=== PATIENT | male | born 1985 | race Caucasian/White ===

== ENCOUNTER → 2017-08-09 | Outpatient (CLI) | payer OTHER ==
--- NOTE | ~2017-08-09 | EKG ---
[address] [address] ELECTROCARDIOGRAM REPORT Name: TIMO ROACH [facility] [id number] Admission: 08/09/17 Attend Phys: Eleanor Coulter MD, Discharge: Date of : 83 Report #: [id number] THIS REPORT FOR: //name// [facility] Test Date: 2017-08-09 Test Time: 09:28:41 Pat Name: TIMO ROACH Department: Room: Gender: M [employer]: : 1985 Requested By: Eleanor Coulter Order Number: [id number] MD: Nav Lockwood Measurements Intervals [place] Rate: 70 P: 28 AR: 148 QRS: 32 QRSD: 99 T: 39 QT: 397 QTc: 429 Interpretive Statements Sinus rhythm Normal No previous ECG available for comparison Electronically Signed On 08-10-2017 7:33:43 FLAGSETTER by Nav Lockwood [email or web address] <ELECTRONICALLY SIGNED> By: Nav Lockwood MD, [facility] 08/10/17 0733 0928 0928 Nav Lockwood MD, FAC /EPI
== END ==
LOC: RAD 08:55
DX: Z01.818 Encounter for other preprocedural examination (principal); E66.01 Morbid (severe) obesity due to excess calories; Z68.36 Body mass index [BMI] 36.0-36.9, adult

== ENCOUNTER 2017-08-18 05:24 | Day surgery (SDC) | payer OTHER ==
[2017-08-18] VITALS (9 sets, daily range): BP systolic 120–160; BP diastolic 73–101
[~2017-08-18] VITALS: Ht 188 cm; Wt 131.5 kg
--- NOTE | ~2017-08-18 | S ---
[facility] [place] [address] SURGICAL PATH RPT PROCEDURE Name: DERREK ROACH Room #: DEP [facility] M.R.#: [id number] Admission: 08/18/17 Date of : 83 Discharge: 08/19/17 Report #: [id number] Path Case #: [id number] PATHOLOGY REPORT COLLECTION DATE: 08/18/2017 RECEIVED DATE: 08/22/2017 SUBMITTING PHYS: Dr. Eleanor Coulter OTHER PHYS: Dr. Lamont Saucedo SPECIMEN(S) RECEIVED: A.Lateral stomach * * * * * * * * * * * * FINAL DIAGNOSIS: "Lateral stomach", partial gastrectomy: - Gastric mucosa, submucosa, and muscular wall with mild mucosal reactive changes and mild chronic inflammation. (CLW:pit; 08/23/2017) PATHOLOGIST: Chrissie Crawford M.D. REPORT ELECTRONICALLY SIGNED BY: Chrissie Crawford M.D. DATE/TIME: 08/23/2017 13:12 * * * * * * * * * * * * GROSS PATHOLOGY: The specimen is received in formalin, labeled "Derrek Roach lateral stomach". Received is a partial gastrectomy specimen with a stapled margin of resection measuring 20.2 x 6.5 cm in greatest dimensions. The serosal surface is walker-quinteros, smooth, and shiny. Opening the specimen reveals a pink-quinteros with closer displaying is normal architectural folds. No polyps or mass lesions identified. The specimen is submitted representatively in cassettes A1-A3. (SDY; 08/22/2017) CLINICAL HISTORY: Morbid obesity INITIAL CPT CODE(S): A; 06883 Professional services performed by [facility] at [facility] [address], [place] [address] Technical services performed by [facility] at [address] [place] [address]. [facility] [address] [place] [address] SURGICAL PATH RPT PROCEDURE Name: DERREK ROACH Room #: DEP [facility] Jenny#: [id number] Admission: 08/18/17 Date of : 83 Discharge: 08/19/17 Report #: [id number] Path Case #: [id number] [facility] [address] [address] PHONE: [phone] DIRECTOR: Oleg Hannah M.D. * * * END OF REPORT * * *
--- NOTE | ~2017-08-18 | O ---
[facility] [place] [address] OPERATIVE REPORT Name: TIMO ROACH Room #: 406-P REG [facility] M.R.#: [id number] Admission: 08/18/17 Attend Phys: Eleanor Coulter MD, Discharge: Date of : 83 Report #: [id number] THIS REPORT FOR: //name// CC: Lamont Coulter DATE OF SERVICE: 08/18/2017 PREOPERATIVE DIAGNOSES: 1. Obstructive sleep apnea. 2. Morbid obesity with a BMI of 37.3. POSTOPERATIVE DIAGNOSES: 1. Obstructive sleep apnea. 2. Morbid obesity with a BMI of 37.3. PROCEDURES PERFORMED: 1. Laparoscopic sleeve gastrectomy. 2. Thorough esophagogastroduodenoscopy (EGD). SURGEON: Eleanor Coulter MD POLE SANDER OPERATOR: Jackson Woodruff MD SECOND HOTEL ATTENDANT: ANNE Rooney ANESTHESIA: General endotracheal anesthesia. ESTIMATED BLOOD LOSS: Minimal (less than 5 mL). COMPLICATIONS: None appreciated. SPECIMENS: Gastric sleeve resection specimen to pathology. INDICATIONS: The patient is a 31-year-old male with a longstanding history of obesity as well as medical comorbid condition in the form of obstructive sleep apnea. The patient has a long history of obesity and has tried numerous weight loss attempts, all to no avail. The patient has been cleared by his primary care provider as well as by Psychology and Nutrition who have all indicated it is medically necessary for long-term weight loss as well as assistance with resolution of his comorbid conditions. As such, indication was for the above-mentioned procedures today. DESCRIPTION OF PROCEDURE: After explaining the risks, benefits and alternatives of the procedure with the patient in detail in the preoperative holding area and obtaining written consent, the patient was brought to the operating room and [address] [place] [address] OPERATIVE REPORT Name: TIMO ROACH Room #: 406-P REG [facility] M.R.#: [id number] Admission: 08/18/17 Attend Phys: Eleanor Coulter MD, Discharge: Date of : 83 Report #: [id number] placed supine on the operating room table. After conducting a thorough timeout procedure, verifying correct patient and procedure, the patient was given general endotracheal anesthesia. Once adequate anesthesia was obtained, his SCDs were hooked up in pneumatic compression device and he was given a preoperative dose of antibiotics in line with the SCIP protocol. It should be noted he was given a dose of Lovenox in the preoperative holding area 1 hour prior to the operating room as well to prevent venous thromboembolism. The patient was now positioned in the low lithotomy position with his legs in the Yellofin stirrups and his abdomen was prepped and draped in standard surgical sterile fashion. I began the procedure by performing a thorough EGD. The [employer] upper endoscope was used to intubate the oropharynx and was traversed down into the esophagus with ease. The pylorus was intubated and the scope was advanced to the second portion of the duodenum. Slow and careful withdrawal of the EGD scope showed no evidence of duodenitis, gastritis, esophagitis, mass lesions or ulcerations. Retroflexion view of the scope within the gastric lumen did not show a clearly identifiable hiatal hernia at this time. The scope was straightened out with its tip at the level of the pylorus where it was taped into position and the stomach was fully desufflated. I now turned to the operative portion of the procedure. After sterilely scrubbing, 5 mL of 0.5% Marcaine with epinephrine were used to anesthetize the skin in the right mid abdomen, 5 cm cephalad to the umbilicus and 5 cm to the patient's right. A #15 bladed scalpel was used to create a 1.5 cm transverse skin incision at this location. A 15 mm Visiport was placed over 0 degree 5 mm laparoscope and was introduced through this incision site. Once intra-abdominal placement was verified visually, the obturator for the trocar and laparoscope were both removed and the abdomen was insufflated to 15 mmHg using carbon dioxide gas. The laparoscope was changed to a 5 mm 30-degree laparoscope, which was reintroduced through this trocar. The entire abdomen was evaluated to ensure no injury upon entry. I now proceeded to place 3 additional 5 mm trocars in the patient's left abdomen. The first was placed 2 cm cephalad to the umbilicus and 1 cm to the patient's left and an additional one was placed 5 cm lateral to that and a final one was placed in the extreme left lateral flank. All 3 additional trocars were placed under direct vision after anesthetizing the skin at each location with 5 mL of 0.5% Marcaine with epinephrine and created appropriately sized skin nicks using #15 bladed scalpel. The laparoscope was removed and changed to the 5 mm port just to the left of the patient's umbilicus and he was placed in steep reverse Trendelenburg position. I now proceeded to place a Michael liver retractor in the subxiphoid location by anesthetizing the skin at that location with 5 mL of 0.5% Marcaine with epinephrine. I created a small skin taqueria using #15 bladed scalpel. I utilized the obturator from the 5 mm port to penetrate the fascia at this level and then maneuvered the Michael retractor through this defect where it was positioned up under the left lobe of the liver and was held up against the posterior aspect of the anterior abdominal wall. We now have complete access to the stomach and hiatal regions. I now positioned the EGD scope to run along the lesser curvature of the stomach and began my dissection after identifying our landmarks. The vein of [place] was [facility] [address] [place] [address] OPERATIVE REPORT Name: TIMO ROACH Room #: 406-P REG [facility] M.R.#: [id number] Admission: 08/18/17 Attend Phys: Eleanor Coulter MD, Discharge: Date of : 83 Report #: [id number] identified overlying the pylorus. I measured 4 cm proximal to this location and began taking down the short gastric arteries from this location all the way up the greater curvature of the stomach using Harmonic scalpel for hemostasis. Once I arrived upon the base of the left larisa, I dissected anteriorly up the left larisa and fat pad was tethered; however, this was easily removed, staying well away from the stomach at all times. The gastric tissue was now elevated and all posterior gastric attachments were taken down, staying well away from the wall of the stomach as well as the pancreas to prevent injury from thermal spread. Evaluation at this juncture showed that the fat pad had been tethered to the hiatus; however, there was no identifiable defect consistent with a hiatal hernia at this juncture. The patient's OG tube was now removed by Anesthesia and we proceeded with the sleeve gastrectomy portion of the procedure. The [place] 60 mm stapler with a black load utilizing Ha's Cris-Strip buttressing material placed over it was now entered into the abdomen through the 15 mm port. This first firing started at the location 4 cm proximal to the pylorus and was fired right along, but not extremely tight to the scope so as not to cause stricturing, especially at the incisura. An additional firing of another black load again utilizing Ha's Cris-Strip buttressing material was carried out following the scope as a 34-[place] bougie. Five additional firings of green loads all utilizing Ha's Cris-Strip buttressing material was carried out following the scope as a 34-[place] bougie all the way up to the left larisa until the stomach was completely transected. This left an excellently oriented sleeve of gastric remnant that had no twisting to it whatsoever and had complete hemostasis externally. The resection specimen was placed in the right upper quadrant and 14 mL of Tisseel on the Drawn to Scalespray device was now used to coat the entirety of the staple line with fibrin glue. The resection specimen was now grasped and removed from the abdomen through the 15 mm fascial incision under direct vision and I proceeded to place a fascial closing suture utilizing 0 PDS suture on the [place]-Rohini needle under direct vision at this time. This was not tied down, but was tagged with a hemostat and trocars were placed under direct vision. Now that the Tisseel had dried, normal saline was instilled into the upper abdomen and the EGD scope was reactivated to gently reinsufflate the remnant stomach. Upon withdrawal of the EGD scope, we were able to evaluate the staple line from the inside showing no evidence of bleeding and as it provided gentle insufflation, which was then held under the normal saline in the abdomen, we saw no bubbling thereby signifying a negative leak test. The EGD scope was used to fully desufflate this sleeved stomach and was removed via the oropharynx, passed off the field. Again, we saw no evidence of a hiatal hernia, whatsoever. After sterilely rescrubbing and entering the operative field, the normal saline was suctioned out and it ran clear. The Michael liver retractor was removed and the liver was healthy and uninjured. I now proceeded to close the 15 mm fascial incision by tying down the 0 PDS suture under direct vision to ensure I did not catch a loop of bowel or omentum in my suture repair. One final evaluation of the intra-abdominal domain showed no further evidence of pathology whatsoever and we had complete hemostasis to the sleeve with no twisting whatsoever and no hiatal hernia. The abdomen was [facility] [address] [place] [address] OPERATIVE REPORT Name: TIMO ROACH Room #: 406-P REG [facility].#: [id number] Admission: 08/18/17 Attend Phys: Eleanor Coulter MD, Discharge: Date of : 83 Report #: [id number] now fully desufflated. All remaining trocars were removed under direct vision. A 4-0 Monocryl was used in a standard subcuticular fashion for all skin incisions and Dermabond glue was applied to all skin wounds. The corner of the resection specimen that had been removed was trimmed away and normal saline was passively instilled into the resection specimen yielding 1750 mL in the resection specimen itself. At the end of the procedure, all instrument, needle and sponge counts were correct. The patient tolerated the procedure without incident, was awakened in the operating room and transitioned to the recovery room in stable condition with no apparent complications. <ELECTRONICALLY SIGNED> By: Eleanor Coulter MD, FACS 08/19/17 1036 23 Eleanor Coulter MD, FACS /nt
[~2017-08-18 05:24] MED LIST: DOXYCYCLINE 10100 M1 PO; NEXIUM40 MG PO; WELLBUTRIN 100100 MG PO; XANAX 0.5 MG0.5 MG PO; ZANTAC300 MG PO
[2017-08-18] MEDS ORDERED: HYDROCODONE-ACE15 ML PO (17:16)
[2017-08-18] MEDS ORDERED: ZOFRAN ODT4 MG DISSOLVE (17:16)
[2017-08-19 03:04] VITALS: BP 135/90
[2017-08-19 03:38] LABS: CALCIUM 8.5 mg/dL (8.5-10.1); CREATININE 1.2 mg/dL (0.7-1.3); POTASSIUM 4.3 mmol/L (3.5-5.1)
[2017-08-19 03:44] LABS: HEMATOCRIT 43.1 % (42.0-52.0); HEMOGLOBIN 15.6 gm/dL (14.0-18.0); MCH 31.3 pg (26.0-34.0); MCHC 36.2 g/dL (28.0-37.0); MCV 86.3 fL (80.0-100.0); RDW 13.3 % (10.5-14.5); WBC 9.6 thou/uL (4.0-11.0)
[2017-08-19 08:40] VITALS: BP 138/97
[2017-08-19 12:02] VITALS: BP 138/97
[2017-08-19 12:10] VITALS: BP 138/97
[2017-08-19 12:11] VITALS: BP 138/97
== END 2017-08-19 13:50 | disposition home or self-care (01) ==
LOC: OR 05:24 → TBA 05:24 → OR 08:45 → 4N 18:12 → OR 08-19 13:50
PROVIDERS: Surgery
DX: E66.01 Morbid (severe) obesity due to excess calories (principal); G47.33 Obstructive sleep apnea (adult) (pediatric); K21.9 Gastro-esophageal reflux disease without esophagitis; F32.89 Other specified depressive episodes; F41.8 Other specified anxiety disorders; Z68.37 Body mass index [BMI] 37.0-37.9, adult; Z98.890 Other specified postprocedural states; Z79.891 Long term (current) use of opiate analgesic; Z79.899 Other long term (current) drug therapy
CPT/HCPCS: 50010; 50101; 50222; 50249; 50386; 50555; 50739; 50740; 50962; 51436; 51437; 52182; 52265; 53307; 53311; 54022; 54118; 56462; 56525; 56526; 57092; 62110; 62900; 70005

== ENCOUNTER 2018-08-17 17:38 | Emergency (ER) | payer OTHER ==
[~2018-08-17] VITALS: Ht 188 cm; Wt 77.6 kg
[~2018-08-17 17:38] MED LIST changes: +HYDROCODONE-ACE15 ML PO; +ZOFRAN ODT4 MG DISSOLVE
[2018-08-17] MEDS ORDERED: ADDERALL 30 MG30 MG PO (17:59)
[2018-08-17] MEDS ORDERED: NORCO 5-325 TA1 EACH PO (19:23)
[2018-08-17 20:10] VITALS: BP 114/73
== END 2018-08-17 20:15 | disposition home or self-care (01) ==
LOC: ER 17:38
DX: S82.891A Other fracture of right lower leg, initial encounter for closed fracture (principal); K21.9 Gastro-esophageal reflux disease without esophagitis; X50.3XXA Overexertion from repetitive movements, initial encounter; Y93.89 Activity, other specified; Y92.89 Other specified places as the place of occurrence of the external cause; Y99.8 Other external cause status

== ENCOUNTER → 2019-01-16 | Outpatient (CLI) | payer OTHER ==
[~2019-01-16] MED LIST changes: +ADDERALL 30 MG30 MG PO; +NORCO 5-325 TA1 EACH PO
== END ==
LOC: RAD 10:27
DX: S92.351G Displaced fracture of fifth metatarsal bone, right foot, subsequent encounter for fracture with delayed healing (principal); X58.XXXD Exposure to other specified factors, subsequent encounter